=== PATIENT | female | born 1980 | race American Indian/Alaskan Native ===

== ENCOUNTER 2016-08-28 21:53 | Emergency (ER) | payer SELFPAY ==
[2016-08-28 22:27] VITALS: BP 113/70
[2016-08-28] MEDS ORDERED: LIDOCAINE VISCOUS 2% PO ONE (23:28)
--- NOTE | 2016-08-28 23:28 | Emergency Department Report ---
HPI - General Chief Complaint: Sore Throat Time Seen by Provider: 08/28/16 23:13 - HPI HPI: Room 20 (1 of 2) Is a 35-year-old female presenting with a chief complaint of sore throat. The patient states for 1 week she has had pain in the throat and odynophagia. Patient admits to occasional cough that is sometimes productive of yellow sputum. Patient admits to rhinorrhea. Patient denies any history of fever. The patient is here with her son who is also had a sore throat. Location: Throat Duration: 1 week Quality: Pain Severity: Moderate Modifying factors: [see above] Context: [see above] Mode of transportation: Unknown ED Past Medical Hx - Past Medical History Previous Medical History?: No - Surgical History Past Surgical History?: Yes Additional Surgical History: D&C, tubaligation - Family History Family history: no significant - Social History Smoking Status: Never Smoker Substance Use Type: Alcohol (occasional) - Medications Home Medications: Home Medications Medication Instructions Recorded Confirmed Last Taken Type Amoxicillin 500 mg PO BID #14 capsule 08/28/16 Unknown Rx Ibuprofen [Motrin 800 MG tab] 800 mg PO Q8HR PRN #20 tablet 08/28/16 Unknown Rx traMADol [Ultram] 50 mg PO Q6HR PRN #14 tablet 08/28/16 Unknown Rx ED Review of Systems ROS: Stated complaint: THROAT PAIN Other details as noted in HPI Comment: All other systems reviewed and negative Constitutional: denies: chills, fever Eyes: denies: eye pain, eye discharge, vision change ENT: throat pain Respiratory: cough Cardiovascular: denies: chest pain, palpitations Endocrine: no symptoms reported Gastrointestinal: denies: abdominal pain, nausea, diarrhea Genitourinary: denies: urgency, dysuria, discharge Musculoskeletal: denies: back pain, joint swelling, arthralgia Skin: denies: rash, lesions Neurological: denies: headache, weakness, paresthesias Psychiatric: denies: anxiety, depression Hematological/Lymphatic: denies: easy bleeding, easy bruising Physical Exam - Physical Exam Vital Signs: Vital Signs 08/28/16 22:23 Temperature 98.6 F Pulse Rate 77 Respiratory 18 Rate Blood Pressure 113/70 O2 Sat by Pulse 100 Oximetry Physical Exam: GENERAL: The patient is well-developed well-nourished emails sitting in chair not appear to be in acute distress HEENT: Normocephalic. Atraumatic. Extraocular motions are intact. Patient has moist mucous membranes. No exudates seen. 2+ tonsils bilaterally NECK: Supple. No meningitic signs are noted. Trachea midline. No stridor CHEST/LUNGS: Clear to auscultation. There is no respiratory distress noted. HEART/CARDIOVASCULAR: Regular. There is no tachycardia. There is no gallop rub or murmur. ABDOMEN: Abdomen is soft, nontender. Patient has normal bowel sounds. There is no abdominal distention. SKIN: There is no rash. There is no edema. There is no diaphoresis. NEURO: The patient is awake, alert, and oriented. The patient is cooperative. The patient has normal speech MUSCULOSKELETAL: There is no evidence of acute injury. ED Course Vital Signs 08/28/16 22:23 Temperature 98.6 F Pulse Rate 77 Respiratory 18 Rate Blood Pressure 113/70 O2 Sat by Pulse 100 Oximetry ED Medical Decision Making - Differential Diagnosis pharyngitis, uri Critical care attestation.: If time is entered above; I have spent that time in minutes in the direct care of this critically ill patient, excluding procedure time. ED Disposition Clinical Impression: Pharyngitis, acute Disposition: DISCHARGED TO HOME OR SELFCARE Is pt being admited?: No Does the pt Need Aspirin: No Condition: Stable Instructions: Pharyngitis (ED) Additional Instructions: Return to the emergency department immediately should you develop worsening symptoms, fever, inability to tolerate food or liquid or any other concerns. Prescriptions: Amoxicillin 500 mg PO BID #14 capsule Ibuprofen [Motrin 800 MG tab] 800 mg PO Q8HR PRN #20 tablet PRN Reason: Pain traMADol [Ultram] 50 mg PO Q6HR PRN #14 tablet PRN Reason: Pain Referrals: CECI ASENZ MD [Staff Physician] - 3-5 Days (Dr Saenz is a primary physician. Please follow up with him to be established as a patient.) DARRICK MURO MD [Staff Physician] - 3-5 Days (Dr Muro is an ear nose and throat doctor. Please follow up with her for further evaluation) Time of Disposition: 23:34
== END 2016-08-29 00:10 | disposition home or self-care (01) ==
LOC: ED 21:53
DX: J02.9 Acute pharyngitis, unspecified (principal)
CPT/HCPCS: 99282